=== PATIENT | male | born 1960 | race Caucasian/White ===

== ENCOUNTER 2017-11-26 12:44 | Outpatient (CLI) | payer OTHER ==
--- NOTE | 2017-11-26 13:31 | RAD ---
CERVICAL SPINE THREE VIEWS: HISTORY: Status post surgery for fusion of the cervical spine. COMPARISON: None. FINDINGS: Three views of the cervical spine show the patient to be status post anterior fusion of C3 through C7 . There were only four levels fused, and this patient may have had prior fusion of one of these leve ls. There are intervening disk spaces at three levels. The inferior-most screw on the right has abigail ked out approximately 1 cm. There may be a mild amount of overlying prevertebral soft tissue swellin g. IMPRESSION: The lower right screw fixating the plate in the neck has backed out, as above. POS: [facility]
== END 2017-11-26 12:45 | disposition home or self-care (01) ==
LOC: TBSIIMAG 12:44
PROVIDERS: ATTEND Neurological Surgery
DX: S14.123A Central cord syndrome at C3 level of cervical spinal cord, initial encounter (principal); S14.124A Central cord syndrome at C4 level of cervical spinal cord, initial encounter
CPT/HCPCS: 72040

== ENCOUNTER 2018-02-08 16:16 | Outpatient (CLI) | payer OTHER ==
--- NOTE | 2018-02-08 16:57 | RAD ---
CERVICAL SPINE TWO VIEWS: HISTORY: Myelopathy. Evaluate loose screw. COMPARISON: 11/26/2017 FINDINGS: Redemonstration of an anterior fusion plate with transvertebral body screw from C3 through C6. Fusio n plate is unchanged. There is a new screw that is retracted 1.1 cm. Findings are similar to the pr evious examination. On the AP projection, mild degenerative change of the facets is noted. Calcific ation of the carotid arteries is identified. IMPRESSION: Stable cervical fusion hardware. Stable loose screw. POS: [facility]
== END 2018-02-08 16:17 | disposition home or self-care (01) ==
LOC: TBSIIMAG 16:16
PROVIDERS: ATTEND Neurological Surgery
DX: M47.12 Other spondylosis with myelopathy, cervical region (principal); Z98.1 Arthrodesis status
CPT/HCPCS: 72040

== ENCOUNTER 2018-06-08 13:58 | Outpatient (CLI) | payer OTHER ==
--- NOTE | 2018-06-08 15:07 | RAD ---
CERVICAL SPINE SERIES THREE VIEWS: History: Post op cervical spine surgery. Comparison: 02-08-18 FINDINGS: Anterior cervical fusion with placement of plate and screws again noted extending from C3 to C6. Nj ers of disc implants are within the confines of the disc level. The protruding screw seen at the righ t side of the inferior most portion of the plate at C6 is again demonstrated. IMPRESSION: Stable exam. POS: [facility]
== END 2018-06-08 13:59 | disposition home or self-care (01) ==
LOC: TBSIIMAG 13:58
PROVIDERS: ATTEND Neurological Surgery
DX: M47.12 Other spondylosis with myelopathy, cervical region (principal)
CPT/HCPCS: 72040